=== PATIENT | female | born 1960 | race Caucasian/White ===

== ENCOUNTER 2025-02-09 11:41 | Emergency (ER) | payer OTHER ==
[~2025-02-09] VITALS: Ht 162.6 cm; Wt 78.8 kg
[2025-02-09 12:29] LABS: VENOUS BASE EXCESS 4.2 (-2.0-2.0); VENOUS HCO3 31.3 MMOL/L (23.0-27.0); VENOUS O2 SATURATION 67.2 % (60.0-80.0); VENOUS PARTIAL PRESSURE CO2 58.6 mmHg (38.0-50.0); VENOUS PARTIAL PRESSURE O2 36.3 mmHg (30.0-50.0); VENOUS PH 7.345 UNITS (7.330-7.430); VENOUS STANDARD HCO3 27.5 MMOL/L; VENOUS TOTAL CO2 33.1 MMOL/L (24.0-28.0)
[2025-02-09 12:42] LABS: BASO # 0.0 10^3/uL (0.0-0.2); BASO % 0.5 % (0.0-1.0); EOS # 0.5 10^3/uL (0.0-0.5); EOS % 6.5 % (0.0-3.0); LYMPH # 1.2 10^3/uL (1.5-5.0); LYMPH % 15.9 % (24.0-44.0); MONO # 0.8 10^3/uL (0.0-0.8); MONO % 9.7 % (2.0-8.0); NEUTROPHILS # 5.2 10^3/uL (1.5-8.5); NEUTROPHILS % 67.1 % (36.0-66.0); PLATELET COUNT, AUTOMATED 248 10^3/uL (150-450)
[2025-02-09] MEDS: IPRATROPIUM 0.5 MG/ALBUTEROL 2.5 MG INH SOL UD 3 ML NEB ONE (12:46)
[2025-02-09] MEDS: ALBUTEROL SULFATE 2.5 MG/0.5 ML INH CONCENTRATE NEB SOLN INH ONE (12:46)
[2025-02-09 13:00] LABS: ALT/SGPT 22 U/L (7.0-40); AST/SGOT 20 U/L (<34); CALCIUM LEVEL 9.3 MG/DL (8.3-10.6); CARBON DIOXIDE LEVEL 32 MMOL/L (20-31); CHLORIDE LEVEL 104 MMOL/L (98-107); CREATININE FOR GFR 0.74 MG/DL (0.55-1.30); GLOMERULAR FILTRATION RATE > 90.0 (>45); POTASSIUM SERUM 3.7 MMOL/L (3.5-5.1); SODIUM LEVEL 144 MMOL/L (136-145)
[2025-02-09] MEDS ORDERED: ISOVUE-370 76% 100 ML VIAL As Ordered ONE (13:17)
[2025-02-09] MEDS ORDERED: BACT800T5 PO (14:09)
[2025-02-09] MEDS ORDERED: ALBU2.5V10 INH (14:14)
[2025-02-09] MEDS ORDERED: DULO60CA35 PO (14:14)
[2025-02-09] MEDS ORDERED: MYCO500T PO (14:14)
[2025-02-09] MEDS ORDERED: VENTAER INH (14:14)
[2025-02-09] MEDS ORDERED: GABA-1172 PO ×2 (14:14)
[2025-02-09] MEDS ORDERED: HOME MED LIST COMPLETE! XX SCH (14:15)
[2025-02-09] MEDS ORDERED: B-12100021 PO (14:20)
[2025-02-09] MEDS ORDERED: FERR1TAB8 PO (14:20)
[2025-02-09] MEDS ORDERED: CALCTAB89 PO (14:20)
[2025-02-09] MEDS ORDERED: OFEV1CAP PO (14:20)
[2025-02-09] MEDS ORDERED: D31000CA4 PO (14:20)
[2025-02-09] MEDS ORDERED: PRED10TA2 PO (15:45)
[2025-02-09 15:50] VITALS: BP 143/68; TEMP 98.1; O2SAT 100
== END 2025-02-09 16:09 | disposition home or self-care (01) ==
LOC: M ED 11:41
DX: J84.10 Pulmonary fibrosis, unspecified (principal); Z79.51 Long term (current) use of inhaled steroids; Z79.899 Other long term (current) drug therapy; Z79.52 Long term (current) use of systemic steroids
CPT/HCPCS: 71045; 71275; 74177; 80047; 80048; 80076; 82803; 83605; 84145; 85025; 87040; 87486; 87581; 87633; 87798; 93005; 93041; 94640; 94760; 96374; 99285; J2919; Q9967